=== PATIENT | male | born 1960 | race Caucasian/White ===

== ENCOUNTER 2021-10-15 09:24 | Day surgery (SDC) | payer BC ==
[~2021-10-15] VITALS: Ht 182.9 cm; Wt 100.0 kg
[~2021-10-15 09:24] MED LIST: ATOR20TA58 PO; BENZOCAINE ONE 20% MUCOSAL SPRAY. MM; DRON400T6 PO; FLUO20TA11 PO; HYDROmorphone 2 MG/ML INJ. IVP PRN; IV RINGERS,LACTATED 1000ML 1,000 ML IV SCH; LIDOCAINE 2% TOPICAL JELLY 30GM TUBE. TP ONE; LIDOCAINE 2% VISCOUS 15 ML SOLUTION. SWSW ONE; METO25TA4 PO; MORPHINE SULFATE 2 MG/ML INJ. IVP PRN; MULT-697 PO; PROCHLORPERAZINE 10 MG/2 ML VIAL. IVP PRN; RIVA20TA2 PO; fentaNYL PF VIAL 100 MCG/2 ML VIAL IVP PRN
[2021-10-15 09:56] VITALS: BP 116/78
[2021-10-15] MEDS ORDERED: LIDOCAINE 2% PF 5 ML VIAL. ONE (10:18)
[2021-10-15] MEDS ORDERED: PROPOFOL 10 MG/ML (20ML) VIAL. IV ONE ×2 (10:19→12:11)
[2021-10-15 11:11] VITALS: BP 108/39
--- NOTE | 2021-10-15 14:57 | CARD ---
MR#: [id number] Date of Study: 10/15/2021 Ordering Physician: ROSEMARY SALDANA, Referring Physician: Porsche LUCERO: Ish Sharif [facility] APPROVED REPORT EXAM: Transesophageal echocardiogram with color flow Doppler. INDICATION Atrial Fibrillation Reason For Test : Rule out cardiac source of emboli. PROCEDURE After obtaining informed consent, patient underwent transesophageal echo in the PACU. Type of Sedation : Conscious Sedation Sedation was achieved with Propofol 100 intravenously. Transesophageal probe was inserted and advanced into esophagus by Chema Saldana MD. The ROCK was performed without complications. Throughout the procedure, the blood pressure, pulse oximetry, cardiac rhythm, and rate were monitored . The patient tolerated the procedure without adverse effects. Recovery from general anesthesia was une ventful and vital signs were stable. LEFT VENTRICLE The left ventricle is normal size. There is normal left ventricular wall thickness. The left ventricu lar systolic function is moderately decreased. EF 40-45% There is mild to moderate global hypokinesis . The left ventricular diastolic function and filling is normal for age. No left ventricle thrombus n oted on this study. There is no ventricular septal defect visualized. There is no left ventricular an eurysm. There is no mass noted in the left ventricle. RIGHT VENTRICLE The right ventricle is normal size. There is normal right ventricular wall thickness. The right ventr icular systolic function is normal. ATRIA The left atrium is mildly dilated. The right atrium size is normal. The interatrial septum is intact with no evidence for an atrial septal defect or patent foramen ovale as noted on 2-D or Doppler imagi ng. There is no thrombus noted in the left atrial appendage. AORTIC VALVE The aortic valve is normal in structure and function. Doppler and Color Flow revealed no significant aortic regurgitation. There is no significant aortic valvular stenosis. There is no aortic valvular v egetation. MITRAL VALVE The mitral valve is normal in structure and function. There is no evidence of mitral valve prolapse. There is no mitral valve stenosis. Doppler and Color-flow revealed mild to moderate mitral regurgitat ion. TRICUSPID VALVE The tricuspid valve is normal in structure and function. Doppler and Color Flow revealed trace to mil d tricuspid regurgitation. There is no tricuspid valve prolapse or vegetation. There is no tricuspid valve stenosis. PULMONIC VALVE The pulmonary valve is normal in structure and function. Doppler and Color Flow revealed no pulmonic valvular regurgitation. There is no pulmonic valvular stenosis. GREAT VESSELS The aortic root is normal in size. The ascending aorta is normal in size. The pulmonary artery is nor mal. The IVC is normal in size and collapses >50% with inspiration. Critical Notification Critical Value: No <Conclusion> The left ventricular systolic function is moderately decreased. EF 40-45% There is mild to moderate global hypokinesis. Doppler and Color-flow revealed mild to moderate mitral regurgitation. There is no thrombus noted in the left atrial appendage. Signed by : Rosemary Saldana, Electronically Approved : 10/15/2021 14:56:26
--- NOTE | 2021-10-18 14:42 | HP ---
DATE OF SERVICE: 10/18/2021 ADMIT DATE: 10/15/2021 REASON FOR ADMISSION: Planned outpatient transesophageal echocardiogram. HISTORY OF PRESENT ILLNESS: The patient is a pleasant 61-year-old man with a past medical history as noted below, who was seen by the Electrophysiology Service for atrial fibrillation ablation due to having breakthrough episodes of atrial fibrillation. He had symptomatic atrial fibrillation and therefore was referred for possible ablation therapy. PRIOR MEDICAL HISTORY: 1. Atrial fibrillation. 2. Hypertension. 3. Dyslipidemia. ALLERGIES: No known drug allergies. MEDICATIONS: 1. Atorvastatin 20 mg daily. 2. Multaq 400 mg p.o. b.i.d. 3. Metoprolol tartrate 12.5 mg p.o. b.i.d. 4. Xarelto 20 mg daily. REVIEW OF SYSTEMS: Negative for 10 out 14 systems reviewed, unless otherwise mentioned above in HPI. SOCIAL HISTORY: The patient denies any alcohol, tobacco or illicit drug use. FAMILY HISTORY: Noncontributory. PHYSICAL EXAMINATION: VITAL SIGNS: Afebrile. HEAD AND NECK: Unremarkable. CARDIAC: Regular rate and rhythm without any murmurs, rubs or gallops. LUNGS: Clear to auscultation bilaterally. ABDOMEN: Soft, nontender, nondistended. EXTREMITIES: No clubbing, cyanosis or edema. NEUROLOGIC: No focal deficits. MUSCULOSKELETAL: No trauma. DIAGNOSTIC STUDIES: 1. Nuclear stress test performed on 05/2021 demonstrates a fixed inferior wall defect with ejection fraction of 46%. 2. Echocardiogram in 05/2021 demonstrated an EF of 45-50% without any significant valvular disease. IMPRESSION: Atrial fibrillation and patient is planned for an outpatient ROCK in preparation for atrial fibrillation ablation. PLAN: As noted above, supportive care and the patient has followup with the EP service for an ablation in [address]: Ronald TID: [id number]
== END 2021-10-15 11:39 | disposition home or self-care (01) ==
LOC: SURG 09:24
PROVIDERS: ATTEND Internal Medicine Cardiovascular Disease
DX: I48.91 Unspecified atrial fibrillation (principal); I34.0 Nonrheumatic mitral (valve) insufficiency; E78.00 Pure hypercholesterolemia, unspecified; M19.90 Unspecified osteoarthritis, unspecified site; M81.0 Age-related osteoporosis without current pathological fracture; F41.9 Anxiety disorder, unspecified; F32.9 Major depressive disorder, single episode, unspecified; Z87.891 Personal history of nicotine dependence; Z79.899 Other long term (current) drug therapy; Z98.890 Other specified postprocedural states
CPT/HCPCS: 93312; 93325; J2704